=== PATIENT | male | born 2000 | race Two or more races ===

== ENCOUNTER 2024-06-10 11:39 | Outpatient (CLI) | payer OTHER | END 2024-06-10 11:44 | disposition home or self-care (01) | LOC: RAD 11:39 | PROVIDERS: ATTEND Orthopaedic Surgery | DX: S93.411A Sprain of calcaneofibular ligament of right ankle, initial encounter (principal); X58.XXXA Exposure to other specified factors, initial encounter; Y93.9 Activity, unspecified; Y92.9 Unspecified place or not applicable; Y99.9 Unspecified external cause status ==